=== PATIENT | male | born 2000 | race Two or more races ===

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

== ENCOUNTER 2020-12-19 21:55 | Emergency (ER) | payer MEDICAID, OTHER ==
[~2020-12-19] VITALS: Ht 180.3 cm; Wt 104.3 kg
[2020-12-19 22:20] VITALS: BP 145/83
== END 2020-12-20 03:11 | disposition left against medical advice (07) ==
LOC: ER 21:55
DX: Z53.21 Procedure and treatment not carried out due to patient leaving prior to being seen by health care provider (principal)